=== PATIENT | female | born 1930 | race African-American/Black ===

== ENCOUNTER 2017-07-03 23:53 | Emergency (ER) | payer OTHER ==
[2017-07-04 00:44] LABS: Absolute Lymphocytes (CBC) 0.2 K/uL (0.7-4.9); Absolute Monocytes 0.2 K/uL (0.1-1.3); Absolute Neutrophil 8.3 K/uL (1.8-8.0); Basophils % 0.2 % (0-1.3); Eosinophils % 0.1 % (0-4.4); Hematocrit 38.5 % (36.0-45.0); Lymphocytes % 2.7 % (15.3-44.8); MCH 29.3 pg (27.0-35.0); MCV 85.5 fL (80-100); MPV 8.8 fL (7.6-11.3); Monocytes % 2.6 % (3.3-12.3)
[2017-07-04] MEDS ORDERED: ONDANSETRON 4 MG/2 ML VIAL ONE (00:53)
[2017-07-04 00:55] LABS: Potassium 3.8 mEq/L (3.6-5.0)
[2017-07-04 01:01] LABS: Albumin 3.9 g/dL (3.2-5.5); Bilirubin Direct 0.1 mg/dL (0-0.2); Bilirubin Total 0.5 mg/dL (0.3-1.2); Protein, Total 7.1 g/dL (6.0-8.3)
[2017-07-04 01:23] LABS: Blood Morphology Comment NOT SEEN (NOT SEEN); Platelet Estimate ADEQ
[2017-07-04 03:15] LABS: Urine Blood NEGATIVE (NEG); Urine Glucose NEGATIVE (NEG); Urine Specific Gravity 1.025 (1.005-1.030); Urine pH 5.5 (5.0-7.0)
[2017-07-04 03:16] LABS: Urine Protein TRACE (NEG)
[2017-07-04 03:17] LABS: Urine Bacteria <20 /HPF (<20); Urine Culture Reflex Order REFLEXED; Urine Mucus LIGHT /HPF (NONE SEEN); Urine RBC NONE SEEN /HPF (NONE SEEN)
--- NOTE | 2017-07-04 03:21 | EDPHYS ---
Physician Documentation [facility] Name: Maite Au Age: 87 yrs Sex: Female : 1930 Arrival Date: 07/03/2017 Time: 23:56 Bed 18 Private MD: ED Physician James Price HPI: 07/04 03:32 This 87 yrs old Black Female presents to ER via EMS with complaints of Abdominal Pain, gs Nausea/Vomiting. 03:32 The patient presents to the emergency department with vomiting, 2 times since the onset gs of symptoms. Onset: The symptoms/episode began/occurred acutely, yesterday. Possible causes: unknown. The symptoms are aggravated by nothing. The symptoms are alleviated by nothing. Associated signs and symptoms: Pertinent positives: abdominal pain, UPPER. Severity of symptoms: At their worst the symptoms were moderate in the emergency department the symptoms have improved markedly. Historical: - Allergies: 00:30 No Known Allergies; bs1 - Home Meds: 00:30 htn med [Active]; bs1 - PMHx: 00:30 htn; bs1 - PSHx: 00:30 pascual in right leg; bs1 - Immunization history:: Adult Immunizations up to date. - Social history:: Smoking status: Patient/guardian denies using tobacco. ROS: 03:32 All other systems are negative. gs Exam: 03:32 Head/Face: Normocephalic, atraumatic. Eyes: Pupils equal round and reactive to light, gs extra-ocular motions intact. Lids and lashes normal. Conjunctiva and sclera are non-icteric and not injected. Cornea within normal limits. Periorbital areas with no swelling, redness, or edema. ENT: Nares patent. No nasal discharge, no septal abnormalities noted. Tympanic membranes are normal and external auditory canals are clear. Oropharynx with no redness, swelling, or masses, exudates, or evidence of obstruction, uvula midline. Mucous membranes moist. Neck: Trachea midline, no thyromegaly or masses palpated, and no cervical lymphadenopathy. Supple, full range of motion without nuchal rigidity, or vertebral point tenderness. No Meningismus. Chest/axilla: Normal chest wall appearance and motion. Nontender with no deformity. No lesions are appreciated. Cardiovascular: Regular rate and rhythm with a normal S1 and S2. No gallops, murmurs, or rubs. Normal PMI, no JVD. No pulse deficits. Respiratory: Lungs have equal breath sounds bilaterally, clear to auscultation and percussion. No rales, rhonchi or wheezes noted. No increased work of breathing, no retractions or nasal flaring. Abdomen/GI: Soft, non-tender, with normal bowel sounds. No distension or tympany. No guarding or rebound. No evidence of tenderness throughout. Back: No spinal tenderness. No costovertebral tenderness. Full range of motion. Skin: Warm, dry with normal turgor. Normal color with no rashes, no lesions, and no evidence of cellulitis. MS/ Extremity: Pulses equal, no cyanosis. Neurovascular intact. Full, normal range of motion. Neuro: Awake and alert, GCS 15, oriented to person, place, time, and situation. Cranial nerves II-XII grossly intact. Motor strength 5/5 in all extremities. Sensory grossly intact. Cerebellar exam normal. Normal gait. 03:32 Constitutional: The patient appears in no acute distress, alert, awake. 03:32 ECG was reviewed by the Attending Physician. Vital Signs: 07/03 23:49 BP 151 / 63; Pulse 84; Resp 16 S; Temp 97.5(O); Pulse Ox 100% on R/A; Weight 72.12 kg; bs1 Height 5 ft. 2 in. (157.48 cm); Pain 4/10; 07/04 00:45 BP 103 / 31; Pulse 68; Resp 15; Pulse Ox 98% on R/A; Pain 0/10; bs1 01:28 BP 117 / 58; Pulse 64; Pulse Ox 100% on R/A; bs1 01:30 BP 119 / 64; Pulse 66; Resp 15 S; Pulse Ox 100% on R/A; Pain 0/10; bs1 02:30 BP 114 / 42; Pulse 73; Resp 15; Pulse Ox 97% ; Pain 0/10; bs1 03:30 BP 109 / 50; Pulse 68; Resp 15; Temp 97.7(O); Pulse Ox 99% on R/A; Pain 0/10; bs1 07/03 23:49 Body Mass Index 29.08 (72.12 kg, 157.48 cm) bs1 MDM: 00:29 Patient medically screened. 03:32 Differential diagnosis: Nonspecific abd pain, gastritis, pancreatitis, gastroenteritis. Data reviewed: vital signs, nurses notes. Response to treatment: the patient's symptoms have resolved after treatment, the patient's pain is gone, NO EMESIS, and as a result, I will discharge patient. 07/04 00:32 Order name: Basic Metabolic Panel; Complete Time: 01:33 07/04 00:32 Order name: CBC with Diff; Complete Time: 01:33 07/04 00:32 Order name: Hepatic Function; Complete Time: :33 07/04 00:32 Order name: Lipase; Complete Time: :33 07/04 00:32 Order name: Urine Microscopic Only; Complete Time: 03:20 07/04 00:32 Order name: Troponin (emerg Dept Use Only); Complete Time: :33 07/04 00:32 Order name: IV Saline Lock; Complete Time: 00:56 07/04 00:32 Order name: Labs collected and sent; Complete Time: 00:56 07/04 00:32 Order name: Urine Dipstick-Ancillary (obtain specimen); Complete Time: 03:13 07/04 01:23 Order name: Manual Differential; Complete Time: 01:33 [facility] 07/04 01:34 Order name: CT Stone Protocol 07/04 02:46 Order name: Urine Dipstick--Ancillary (enter results); Complete Time: 03:16 rg2 07/04 03:18 Order name: Urine Culture [facility] 07/04 00:32 Order name: EKG - Nurse/Tech; Complete Time: 01:35 gs EC:32 Rate is 69 beats/min. Rhythm is regular. OK interval is normal. QRS interval is normal. gs T waves are Normal. No ST changes noted. Clinical impression: Normal ECG. Interpreted by me. Administered Medications: 00:56 Drug: Zofran 4 mg Route: IVP; Site: left antecubital; bs1 01:35 Follow up: Response: No adverse reaction bs1 Disposition: 07/04/17 03:20 Discharged to Home. Impression: Vomiting, Upper abdominal pain, unspecified. - Condition is Stable. - Discharge Instructions: Abdominal Pain, Adult, Nausea and Vomiting. - Prescriptions for Zofran 4 mg Oral Tablet - take 1 tablet by ORAL route every 12 hours As needed; 6 tablet. - Medication Reconciliation Form, Thank You Letter, Antibiotic Education, Prescription Opioid Use form. - Follow up: Private Physician; When: 1 - 2 days; Reason: Re-evaluation by your physician. Signatures: Dispatcher [employer] Juany Monterroso, RN RN bb James Price MD MD gs Salazar, Brittany RN RN bs1
--- NOTE | 2017-07-04 03:21 | ER ---
Nurse's Notes [facility] Name: Maite Au Age: 87 yrs Sex: Female : 1930 Arrival Date: 07/03/2017 Time: 23:56 Bed 18 Private MD: Diagnosis: Vomiting;Upper abdominal pain, unspecified Presentation: 07/03 23:49 Presenting complaint: EMS states: "Patient reports N/V, and bilateral upper abdominal bs1 pain, started around 1400, felt abdominal pain around 2000, no vomiting noted.". Transition of care: patient was not received from another setting of care. Onset of symptoms was July 03, 2017 at 14:00. Initial Sepsis Screen: Does the patient meet any 2 criteria? No. Patient's initial sepsis screen is negative. Does the patient have a suspected source of infection? No. Patient's initial sepsis screen is negative. Care prior to arrival: None. 23:49 Method Of Arrival: EMS: [facility] bs1 23:49 Acuity: LUIS E 3 bs1 Historical: - Allergies: 07/04 00:30 No Known Allergies; bs1 - Home Meds: 00:30 htn med [Active]; bs1 - PMHx: 00:30 htn; bs1 - PSHx: 00:30 pascual in right leg; bs1 - Immunization history:: Adult Immunizations up to date. - Social history:: Smoking status: Patient/guardian denies using tobacco. Screenin:00 Abuse screen: Denies threats or abuse. Denies injuries from another. bs1 00:00 Nutritional screening: No deficits noted. Tuberculosis screening: No symptoms or risk bs1 factors identified. Fall Risk None identified. Assessment: 07/03 23:50 General: Appears in no apparent distress. uncomfortable, Behavior is calm, cooperative, bs1 appropriate for age. Pain: Complains of pain in bilateral upper abdomen Pain does not radiate. Pain currently is 5 out of 10 on a pain scale. Quality of pain is described as aching. Neuro: Level of Consciousness is awake, alert, obeys commands, Oriented to person, place, time, Appropriate for age Special Certificate Dictator are equal bilaterally. Cardiovascular: Denies chest pain, lightheadedness, palpitations, shortness of breath, Heart tones S1 S2 present Capillary refill < 3 seconds Patient's skin is warm and dry. Respiratory: Airway is patent Trachea midline Respiratory effort is even, unlabored, Respiratory pattern is regular, symmetrical, Breath sounds are clear bilaterally. GI: Abdomen is round Bowel sounds present X 4 quads. Abdomen is tender to palpation in right upper quadrant and left upper quadrant Reports epigastric pain, nausea, vomiting, Patient currently denies bloody stool. : No deficits noted. No signs and/or symptoms were reported regarding the genitourinary system. EENT: No deficits noted. No signs and/or symptoms were reported regarding the EENT system. Derm: Skin is intact, Skin is pink, warm \\T\\ dry. Musculoskeletal: Circulation, motion, and sensation intact. Capillary refill < 3 seconds, Range of motion: intact in all extremities. 07/04 00:50 Reassessment: Patient appears in no apparent distress at this time. No changes from bs1 previously documented assessment. Patient and/or family updated on plan of care and expected duration. Pain level reassessed. Patient is alert, oriented x 3, equal unlabored respirations, skin warm/dry/pink. 01:52 Reassessment: Patient taken to CT. bs1 02:52 Reassessment: Patient appears in no apparent distress at this time. Patient and/or bs1 family updated on plan of care and expected duration. Pain level reassessed. Patient is alert, oriented x 3, equal unlabored respirations, skin warm/dry/pink. 04:06 Reassessment: Patient is alert, oriented x 3, equal unlabored respirations, skin bb warm/dry/pink. pt A\\T\\O x 4, resp unlabored, ambulated with steady gait to exit accompanied by this RN pt assisted home via taxi service. Vital Signs: 07/03 23:49 BP 151 / 63; Pulse 84; Resp 16 S; Temp 97.5(O); Pulse Ox 100% on R/A; Weight 72.12 kg; bs1 Height 5 ft. 2 in. (157.48 cm); Pain 4/10; 07/04 00:45 BP 103 / 31; Pulse 68; Resp 15; Pulse Ox 98% on R/A; Pain 0/10; bs1 01:28 BP 117 / 58; Pulse 64; Pulse Ox 100% on R/A; bs1 01:30 BP 119 / 64; Pulse 66; Resp 15 S; Pulse Ox 100% on R/A; Pain 0/10; bs1 02:30 BP 114 / 42; Pulse 73; Resp 15; Pulse Ox 97% ; Pain 0/10; bs1 03:30 BP 109 / 50; Pulse 68; Resp 15; Temp 97.7(O); Pulse Ox 99% on R/A; Pain 0/10; bs1 07/03 23:49 Body Mass Index 29.08 (72.12 kg, 157.48 cm) bs1 ED Course: 07/03 23:56 Patient arrived in ED. bs1 07/04 00:00 Patient has correct armband on for positive identification. Placed in gown. Bed in low bs1 position. Call light in reach. Side rails up X 1. Pulse ox on. NIBP on. Warm blanket given. 00:00 Arm band placed on right wrist. bs1 00:06 James Price MD is Attending Physician. 00:12 Inserted saline lock: 22 gauge in left antecubital area, using aseptic technique. bs1 00:27 Elizabeth Buck, RN is Primary Nurse. bs1 00:29 Triage completed. bs1 02:12 CT Stone Protocol In Process Unspecified. EDMS 03:15 No provider procedures requiring assistance completed. bs1 04:05 IV discontinued, intact, bleeding controlled, No redness/swelling at site. Pressure bb dressing applied, by Elizabeth MARTIN. Administered Medications: 00:56 Drug: Zofran 4 mg Route: IVP; Site: left antecubital; bs1 01:35 Follow up: Response: No adverse reaction bs1 Outcome: 03:20 Discharge ordered by . 04:05 Discharged to home via taxi service bb 04:05 Condition: stable 04:06 Discharge instructions given to patient, by Elizabeth MARTIN Instructed on discharge bb instructions, follow up and referral plans. medication usage, Demonstrated understanding of instructions, follow-up care, medications, Prescriptions given X 1. 04:09 Patient left the ED. bb Signatures: Dispatcher [employer] EDMS Juany Kimball RN RN James Mandujano MD MD gs Salazar, Brittany, RN RN bs1 Corrections: (The following items were deleted from the chart) 03:15 03:14 Arm band placed on right wrist. bs1 bs1
--- NOTE | 2017-07-04 09:14 | EKG ---
Test Date: 2017-07-04 Test Time: 01:28:08 Chair Car Driver: BRET MEASUREMENT RESULTS: Intervals: Rate: 69 [place]: 150 QRSD: 74 QT: 402 QTc: 430 Gilman: P: 51 [place]: 150 QRS: 21 T: 54 INTERPRETIVE STATEMENTS: Normal sinus rhythm Normal ECG No previous ECG available for comparison Electronically Signed On 07-04-17 09:13:36 CDT by Sean Lucio
--- NOTE | 2017-07-04 09:29 | RAD REPORT ---
EXAM DESCRIPTION: CT - Stone Protocol - 07/04/2017 8:21 am CLINICAL HISTORY: Abdominal pain. Upper abdominal pain with nausea and vomiting COMPARISON: 2011 TECHNIQUE: Computed axial tomography of the abdomen pelvis was obtained without oral or IV contrast. Lack of IV and oral contrast limits evaluation of solid organs, bowel, and vessels. Coronal reformat sindy images were obtained and reviewed. A preliminary report was generated by [employer] and reviewed prior to this dictation All CT scans are performed using dose optimization technique as appropriate and may include automated exposure control or mA/KV adjustment according to patient size. FINDINGS: A renal calculus is not seen. An ureteral calculus is not noted. A bladder calculus is not present. A couple of hepatic cysts are present. The largest measures 2 centimeters. Spleen, pancreas and right adrenal appear grossly normal. 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 The appendix appears normal. 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 A small umbilical hernia is present IMPRESSION: Negative for a genitourinary calculus
== END 2017-07-04 04:09 | disposition home or self-care (01) ==
LOC: ER 23:53 → EDBD 23:53 → ER 07-04 04:09
DX: R10.9 Unspecified abdominal pain (principal)
CPT/HCPCS: 36415; 74176; 76377; 80048; 80076; 83690; 84484; 85025; 87086; 87088; 93005; 96374; 99284; J2405; 81003; 81015

== ENCOUNTER 2019-09-02 21:32 | Emergency (ER) | payer OTHER ==
[2019-09-02 22:24] LABS: ALT/SGPT 15 U/L (12-78); AST/SGOT 22 U/L (15-37); Albumin 3.7 g/dL (3.4-5.0); Alkaline Phosphatase 69 U/L (45-117); BUN Blood Urea Nitrogen 20 mg/dL (7-18); Bicarbonate 26 mmol/L (21-32); Bilirubin Direct < 0.1 mg/dL (0-0.2); Bilirubin Total 0.3 mg/dL (0.2-1.0); Glucose Level 108 mg/dL (74-106); Lipase 131 U/L (73-393); Protein, Total 7.1 g/dL (6.4-8.2); Sodium Level 143 mmol/L (136-145); Troponin (Emerg Dept Use Only) < 0.02 ng/mL (0.0-0.045)
[2019-09-02 23:01] LABS: Absolute Lymphocytes (CBC) 0.4 K/uL (0.7-4.9); Hematocrit 39.7 % (36.0-45.0); MPV 8.1 fL (7.6-11.3); RBC Red Blood Cell Count 4.46 M/uL (3.86-4.86)
--- NOTE | 2019-09-03 00:52 | ER ---
Nurse's Notes [facility] Name: Maite Au Age: 89 yrs Sex: Female : 1930 Arrival Date: 09/02/2019 Time: 21:35 Bed 6 Private MD: Diagnosis: Influenza due to identified novel influenza A virus Presentation: 09/01 21:38 Chief complaint: EMS states: she has generalized nausea 20 min [employer] today but has been mg2 having history of nausea before and she is on zofran at home. Coronavirus screen: Proceed with normal triage. Patient denies a cough. Patient denies shortness of breath or difficulty breathing. Patient denies measured and/or subjective temperature greater than 100.4F prior to today's visit. Patient denies travel on a cruise ship or to a country the [facility] currently lists as an affected area. Patient denies contact with known and/or suspected case of COVID-19. Ebola Screen: No symptoms or risks identified at this time. Initial Sepsis Screen: Does the patient meet any 2 criteria? No. Patient's initial sepsis screen is negative. Does the patient have a suspected source of infection? No. Patient's initial sepsis screen is negative. Risk Assessment: Do you want to hurt yourself or someone else? Patient reports no desire to harm self or others. Onset of symptoms was September 02, 2019. 21:38 Method Of Arrival: [place] [facility] [place]:38 Acuity: LUIS E 3 mg2 Historical: - Allergies: 21:46 No Known Allergies; mg2 - Home Meds: 21:46 Zofran Oral [Active]; Lisinopril Oral [Active]; mg2 - PSHx: 21:46 leg surgery; mg2 - Immunization history:: Flu vaccine status is unknown. - Social history:: Patient/guardian denies using alcohol, street drugs, IV drugs, Smoking status: Patient denies any tobacco usage or history of. - Family history:: not pertinent. - Hospitalizations: : No recent hospitalization is reported. Screenin:43 Abuse screen: Denies threats or abuse. Nutritional screening: No deficits noted. jd3 Tuberculosis screening: No symptoms or risk factors identified. Fall Risk Ambulatory Aid- None/Bed Rest/Nurse Assist (0 pts). Gait- Normal/Bed Rest/Wheelchair (0 pts) Mental Status- Oriented to own ability (0 pts). Total Law Fall Scale indicates No Risk (0-24 pts). Assessment: 21:42 General: Appears in no apparent distress. comfortable, Behavior is calm, cooperative, jd3 appropriate for age. Pain: Denies pain. Neuro: Level of Consciousness is awake, alert, obeys commands, Oriented to person, place, time, situation. Cardiovascular: Denies chest pain, Capillary refill < 3 seconds Patient's skin is warm and dry. Respiratory: Airway is patent Respiratory effort is even, unlabored, Respiratory pattern is regular, symmetrical, Denies cough, shortness of breath. GI: Abdomen is round non-distended, Abd is soft and non tender X 4 quads. Reports nausea prior to arrival, pt reporting feeling better. Patient currently denies abdominal pain. : No signs and/or symptoms were reported regarding the genitourinary system. EENT: No signs and/or symptoms were reported regarding the EENT system. Derm: Skin is intact, Skin is dry, Skin is normal, Skin temperature is warm. Musculoskeletal: Circulation, motion, and sensation intact. Range of motion: intact in all extremities. 22:27 Reassessment: CT notified of pt finishing PO contrast. jd3 22:49 Reassessment: Patient appears in no apparent distress at this time. Patient and/or jd3 family updated on plan of care and expected duration. Pain level reassessed. Patient is alert, oriented x 3, equal unlabored respirations, skin warm/dry/pink. Patient denies pain at this time. 09/02 00:19 Reassessment: Patient appears in no apparent distress at this time. Patient and/or jd3 family updated on plan of care and expected duration. Pain level reassessed. Patient is alert, oriented x 3, equal unlabored respirations, skin warm/dry/pink. Patient denies pain at this time. Patient states feeling better. 01:06 Reassessment: Patient and/or family updated on plan of care and expected duration. Pain ea level reassessed. Patient is alert, oriented x 3, equal unlabored respirations, skin warm/dry/pink. Discharge instruction given to patient, verbalized the understanding of instruction. Pt awaiting for ride home. 01:12 Reassessment: Patient appears in no apparent distress at this time. Patient and/or jd3 family updated on plan of care and expected duration. Pain level reassessed. Patient is alert, oriented x 3, equal unlabored respirations, skin warm/dry/pink. 01:30 Reassessment: Patient and/or family updated on plan of care and expected duration. Pain ea level reassessed. Patient is alert, oriented x 3, equal unlabored respirations, skin warm/dry/pink. Pt left ED via wheelchair per ED staff, pt tolerating well. Pt assisted to private vehicle with family friend. Vital Signs: 09/01 21:38 BP 145 / 65; Pulse 80; Resp 18; Temp 99.4; Pulse Ox 100% on R/A; Height 5 ft. 3 in. mg2 (160.02 cm); 09/02 00:09 BP 134 / 62; Pulse 69; Resp 18; Pulse Ox 99% on R/A; ea 01:00 BP 137 / 60; Pulse 60; Resp 18; Temp 98.5; Pulse Ox 100% ; ea ED Course: 09/01 21:35 Patient arrived in ED. rn 21:35 Elian Ames MD is Attending Physician. rn 21:41 Triage completed. mg2 21:41 Arm band placed on. mg2 21:42 Ricardo Zee, MARIO is Primary Nurse. jd3 21:44 Patient has correct armband on for positive identification. Bed in low position. Call jd3 light in reach. Side rails up X 1. nurse monitoring on. Pulse ox on. NIBP on. 21:45 Missed attempt(s): 22 gauge in left antecubital area. Bleeding controlled, band aid rr5 applied, catheter tip intact. 21:50 Initial lab(s) drawn, by me, sent to lab. rr5 22:15 Missed attempt(s): 20 gauge in right antecubital area. Bleeding controlled, band aid jd3 applied, catheter tip intact. 22:45 Inserted saline lock: 22 gauge in left wrist, using aseptic technique. lp1 09/02 00:16 CT Abd/Pelvis - PO and IV Contrast In Process Unspecified. EDMS 01:06 No provider procedures requiring assistance completed. ea 01:06 IV discontinued, intact, bleeding controlled, No redness/swelling at site. Pressure ea dressing applied. Administered Medications: 01:01 Drug: Tamiflu 75 mg Route: PO; ea 01:08 Follow up: Response: Medication administered at discharge. ea Outcome: 00:52 Discharge ordered by . rn 01:06 Condition: stable ea 01:06 Discharge instructions given to patient, Instructed on discharge instructions, follow up and referral plans. medication usage, Demonstrated understanding of instructions, follow-up care, medications, Prescriptions given X 1. 01:31 Discharged to home via wheelchair, with friend. jd3 01:31 Patient left the ED. jd3 Signatures: Dispatcher [employer] EDMS Elian Ames MD MD rn Pena, Laura RN RN lp1 Raquel Coker RN Ricardo Gimenez ea, RN RN jd3 Kofi Ahn RN RN Keith Del Toro RN RN rr5 Corrections: (The following items were deleted from the chart) 09/01 21:49 21:42 GI: Abdomen is round non-distended, Abd is soft and non tender X 4 quads. Reports jd3 nausea, Patient currently denies abdominal pain, jd3
--- NOTE | 2019-09-03 00:53 | EDPHYS ---
Physician Documentation [facility] Name: Maite Au Age: 89 yrs Sex: Female : 1930 Arrival Date: 09/02/2019 Time: 21:35 Bed 6 Private MD: ED Physician Elian Ames HPI: 09/01 22:35 This 89 yrs old Black Female presents to ER via EMS with complaints of nausea. rn 22:35 The patient presents to the emergency department with nausea, that is mild. Onset: The rn symptoms/episode began/occurred today. Possible causes: unknown. The symptoms are aggravated by nothing. The symptoms are alleviated by prescription meds. Severity of symptoms: At their worst the symptoms were mild in the emergency department the symptoms have improved. The patient has experienced similar episodes in the past. Reports was at [employer] today, states preacher yelled at her telling her to "get out", not sure why, states went home and felt nauseated, took oral zofran because this has happened before, and now feels better. Denies fever/vomiting/diarrhea/chest pain/headache/focal neuro complaint. Does report mild mid abd pain. . Historical: - Allergies: 21:46 No Known Allergies; mg2 - Home Meds: 21:46 Zofran Oral [Active]; Lisinopril Oral [Active]; mg2 - PSHx: 21:46 leg surgery; mg2 - Immunization history:: Flu vaccine status is unknown. - Social history:: Patient/guardian denies using alcohol, street drugs, IV drugs, Smoking status: Patient denies any tobacco usage or history of. - Family history:: not pertinent. - Hospitalizations: : No recent hospitalization is reported. ROS: 22:35 Constitutional: Negative for fever, chills, and weight loss, Eyes: Negative for injury, rn pain, redness, and discharge, Neck: Negative for injury, pain, and swelling, Cardiovascular: Negative for chest pain, palpitations, and edema, Respiratory: Negative for shortness of breath, cough, wheezing, and pleuritic chest pain, Abdomen/GI: + abd pain and nausea Back: Negative for injury and pain, : Negative for injury, bleeding, discharge, and swelling, MS/Extremity: Negative for injury and deformity, Skin: Negative for injury, rash, and discoloration, Neuro: Negative for headache, weakness, numbness, tingling, and seizure. Exam: 22:35 Constitutional: This is a well developed, well nourished patient who is awake, alert, rn and in no acute distress. Head/Face: Normocephalic, atraumatic. ENT: MMM Cardiovascular: Regular rate and rhythm with a normal S1 and S2. No gallops, murmurs, or rubs. Normal PMI, no JVD. No pulse deficits. Respiratory: Lungs have equal breath sounds bilaterally, clear to auscultation and percussion. No rales, rhonchi or wheezes noted. No increased work of breathing, no retractions or nasal flaring. Abdomen/GI: soft, + mild mid abd tenderness, no rebound/masses Skin: Warm, dry MS/ Extremity: Pulses equal, no cyanosis. Neuro: Awake and alert, GCS 15, oriented to person, place, time, and situation. Cranial nerves II-XII grossly intact. Motor strength 5/5 in all extremities. Sensory grossly intact. Cerebellar exam normal. Vital Signs: 21:38 BP 145 / 65; Pulse 80; Resp 18; Temp 99.4; Pulse Ox 100% on R/A; Height 5 ft. 3 in. mg2 (160.02 cm); 09/02 00:09 BP 134 / 62; Pulse 69; Resp 18; Pulse Ox 99% on R/A; ea 01:00 BP 137 / 60; Pulse 60; Resp 18; Temp 98.5; Pulse Ox 100% ; ea MDM: 09/01 21:35 Patient medically screened. rn 09/02 00:50 Differential diagnosis: Nonspecific abd pain, cholecystitis, pancreatitis, rn appendicitis, diverticulitis, viral gastroenteritis, gastroenteritis, influenza. Data reviewed: vital signs, nurses notes, lab test result(s), EKG, radiologic studies, CT scan, and as a result, I will discharge patient. Counseling: I had a detailed discussion with the patient and/or guardian regarding: the historical points, exam findings, and any diagnostic results supporting the discharge/admit diagnosis, lab results, radiology results, the need for outpatient follow up, to return to the emergency department if symptoms worsen or persist or if there are any questions or concerns that arise at home. Special discussion: Based on the patient's Hx, exam, and Dx evaluation, there is no indication for emergent surgery or inpatient Tx. It is understood by the patient/guardian that if the Sx's persist or worsen they need to return immediately for re-evaluation. I discussed with the patient/guardian in detail that at this point there is no indication for admission to the hospital. It is understood, however, that if the symptoms persist or worsen the patient needs to return immediately for re-evaluation. ED course: + influenza, normal vitals, will dc home given neg ct abdomen, is sleeping comfortably, and no vomiting. . 09/01 21:38 Order name: Basic Metabolic Panel; Complete Time: 22:34 09/01 21:38 Order name: CBC with Diff; Complete Time: 23:26 09/01 21:38 Order name: Hepatic Function; Complete Time: 22:34 09/01 21:38 Order name: Lipase; Complete Time: 22:34 09/01 21:38 Order name: Urine Microscopic Only 09/01 21:38 Order name: Troponin (emerg Dept Use Only); Complete Time: 22:34 09/01 21:38 Order name: IV Saline Lock; Complete Time: 22:36 09/01 21:38 Order name: Labs collected and sent; Complete Time: 21:53 09/01 21:38 Order name: CT Abd/Pelvis - PO and IV Contrast 09/01 21:38 Order name: EKG; Complete Time: 21:39 09/01 22:35 Order name: Flu; Complete Time: 00:44 09/01 23:31 Order name: Urine Dipstick--Ancillary (enter results) [facility] 09/02 01:18 Order name: Urine Culture [facility] 09/01 21:38 Order name: Urine Dipstick-Ancillary (obtain specimen); Complete Time: 23:31 09/01 21:38 Order name: EKG - Nurse/Tech; Complete Time: 22:25 rn Administered Medications: 01:01 Drug: Tamiflu 75 mg Route: PO; ea 01:08 Follow up: Response: Medication administered at discharge. ea Disposition: 09/03/19 00:52 Discharged to Home. Impression: Influenza due to identified novel influenza A virus. - Condition is Stable. - Discharge Instructions: Influenza, Adult. - Prescriptions for Zofran ODT 4 mg Oral tablet,disintegrating - place 1 tablet by TRANSLINGUAL route every 8 hours As needed; 20 tablet. Tamiflu 75 mg Oral Capsule - take 1 capsule by ORAL route every 12 hours for 5 days; 10 capsule. - Medication Reconciliation Form, Thank You Letter, Antibiotic Education, Prescription Opioid Use form. - Follow up: Private Physician; When: As needed; Reason: Recheck today's complaints, Re-evaluation by your physician. - Problem is new. - Symptoms have improved. Signatures: Dispatcher [employer] EDMS Elian Ames MD MD rn Antunez, Elena RN Ricardo Gimenez ea, RN RN jKofi Bynum RN RN mg2 Corrections: (The following items were deleted from the chart) 01:31 00:52 09/03/2019 00:52 Discharged to Home. Impression: Influenza due to identified jd3 novel influenza A virus. Condition is Stable. Forms are Medication Reconciliation Form, Thank You Letter, Antibiotic Education, Prescription Opioid Use. Follow up: Private Physician; When: As needed; Reason: Recheck today's complaints, Re-evaluation by your physician. Problem is new. Symptoms have improved. rn
[2019-09-03] MEDS ORDERED: OSELTAMIVIR 75 MG CAP ONE (01:05)
[2019-09-03 01:16] LABS: Urine Bacteria <20 /HPF (<20); Urine Culture Reflex Order REFLEXED; Urine RBC <5 /HPF (NONE SEEN)
[2019-09-03 01:18] LABS: Urine Blood NEGATIVE (NEG); Urine Glucose NEGATIVE (NEG); Urine Protein NEGATIVE (NEG); Urine Specific Gravity 1.025 (1.005-1.030)
[2019-09-03 01:51] VITALS: BP 137/60; TEMP 98.5; O2SAT 100
--- NOTE | 2019-09-03 07:25 | EKG ---
Test Date: 2019-09-02 Test Time: 21:58:38 Seconds Inspector: TT MEASUREMENT RESULTS: Intervals: Rate: 85 PA: 144 QRSD: 70 QT: 376 QTc: 447 [place]: P: 51 PA: 144 QRS: 16 T: 55 INTERPRETIVE STATEMENTS: Normal sinus rhythm with sinus arrhythmia Normal ECG Compared to ECG 07/04/2017 01:28:08 No significant changes Electronically Signed On 09-03-19 07:24:05 CDT by Sean Lucio
--- NOTE | 2019-09-03 10:44 | RAD REPORT ---
EXAM DESCRIPTION: CT Abdomen and Pelvis With Intravenous Contrast CLINICAL HISTORY: The patient is 89 years old and is Female; Abd pain;Nausea / vomiting TECHNIQUE: Axial computed tomography images of the abdomen and pelvis with intravenous contrast. S agittal and coronal reformatted images were created and reviewed. This CT exam was performed using one or more of the following dose reduction techniques: automated exposure control, adjustment of t he mA and/or kV according to patient size, and/or use of iterative reconstruction technique. COMPARISON: No relevant prior studies available. FINDINGS: ARTIFACTS: The exam is suboptimal secondary to motion artifact. LUNG BASES: Calcified granuloma within the right lung base is present. Minimal dependent densiti es in the lung bases is noted. ABDOMEN: LIVER: Multiple hepatic granuloma are present. Hepatic cysts are noted, the largest within the right hepatic lobe measuring 1.2 cm is noted. GALLBLADDER AND BILE DUCTS: No calcified stones. No ductal dilation. PANCREAS: No ductal dilation. No mass. SPLEEN: Unremarkable. ADRENALS: Hyperplasia of the adrenal glands is present. KIDNEYS AND URETERS: 0.8 cm left renal cyst is present. The kidneys enhance symmetrically. No ob structing renal or ureteral calculus is seen. STOMACH AND BOWEL: The stomach is minimally distended with oral contrast. Oral contrast is prese nt throughout the small bowel which is normal in caliber. Stool and contrast are noted throughout the colon. There is no mucosal thickening or evidence of bowel obstruction. PELVIS: APPENDIX: The appendix is normal in caliber without surrounding inflammation. BLADDER: Unremarkable. No mass. REPRODUCTIVE: Unremarkable as visualized. ABDOMEN and PELVIS: INTRAPERITONEAL SPACE: Unremarkable. No free air. No significant fluid collection. BONES/JOINTS: Multilevel degenerative changes of the spine is present. SOFT TISSUES: The soft tissues are normal. VASCULATURE: Minimal atherosclerosis of the vasculature is present. No abdominal aortic aneury sm. LYMPH NODES: Unremarkable. No enlarged lymph nodes. IMPRESSION: No acute findings on this contrasted CT of the abdomen and pelvis to explain the patient 's symptoms. Electronically signed by: Maxine Alcazar MD 09/03/2019 12:22 AM CDT Due to temporary technical issues with the PACS/Fluency reporting system, reports are being signed by the in house radiologist without review as a courtesy to ensure prompt reporting. The interpreting r adiologist is fully responsible for the content of the report.
== END 2019-09-03 01:31 | disposition home or self-care (01) ==
LOC: ER 21:32
DX: J10.1 Influenza due to other identified influenza virus with other respiratory manifestations (principal)
CPT/HCPCS: 93005; 87088; 85025; 87086; 80048; 36415; 80076; 84484; 83690; 87804 ×2; 74177; 99284; Q9967; 81003; 81015

== ENCOUNTER 2020-04-21 15:01 | Emergency (ER) | payer OTHER ==
--- NOTE | 2020-04-21 16:45 | RAD REPORT ---
EXAM DESCRIPTION: RAD - Pelvis - 04/21/2020 4:38 pm CLINICAL HISTORY: left leg pain COMPARISON: No comparisons FINDINGS: Mild arthritic changes involve both hips. No fracture, dislocation or AVN.
--- NOTE | 2020-04-21 16:46 | RAD REPORT ---
EXAM DESCRIPTION: RAD - Femur Left - 04/21/2020 4:38 pm CLINICAL HISTORY: PAIN COMPARISON: No comparisons FINDINGS: No fracture or dislocation seen.
[2020-04-21] MEDS ORDERED: TRAMADOL HCL 50 MG TAB ONE (17:06)
--- NOTE | 2020-04-21 17:47 | ER ---
Nurse's Notes [facility] Name: Maite Au Age: 89 yrs Sex: Female : 1930 Arrival Date: 04/21/2020 Time: 15:16 Bed 19 Private MD: Diagnosis: Pain in left hip Presentation: 04/21 15:16 Coronavirus screen: Client denies travel out of the [place] in the last 14 days. At this ph time, the client does not indicate any symptoms associated with coronavirus-19. Ebola Screen: No symptoms or risks identified at this time. Initial Sepsis Screen: Does the patient meet any 2 criteria? No. Patient's initial sepsis screen is negative. Does the patient have a suspected source of infection? No. Patient's initial sepsis screen is negative. Risk Assessment: Do you want to hurt yourself or someone else? Patient reports no desire to harm self or others. Onset of symptoms was April 21, 2020. 15:16 Method Of Arrival: EMS: [facility] 15:17 Chief complaint: EMS states: was getting off of the bus, missed the last step and sv landed on her left hip area. c/o pain to the left hip. Vitals stable. Care prior to arrival: None. Mechanism of Injury: Fall down 1 steps. Trauma event details: Injury occurred in the [facility], Injury occurred: on a street or highway. Injury occurred: April 21, 2020. 15:17 Acuity: LUIS E 4 sv 15:17 Method Of Arrival: EMS: [facility] 15:19 Mechanism of Injury: Fall down steps. Transition of care: patient was not received from another setting of care. Triage Assessment: 15:29 General: Appears in no apparent distress. comfortable, Behavior is calm, cooperative, ph appropriate for age. Pain: Complains of pain in left hamstring. Neuro: Level of Consciousness is awake, alert, obeys commands, Oriented to person, place, time, situation. Cardiovascular: Capillary refill < 3 seconds in bilateral fingers Patient's skin is warm and dry. Respiratory: Airway is patent Respiratory effort is even, unlabored. Derm: Skin is intact, is healthy with good turgor, Skin is pink, warm \T\ dry. Musculoskeletal: Circulation, motion, and sensation intact. Range of motion: intact in all extremities. Trauma Activation: Not Applicable Physician: ED Physician; Name: ; Notified At: ; Arrived At: Physician: General Surgeon; Name: ; Notified At: ; Arrived At: Physician: Radiology; Name: ; Notified At: ; Arrived At: Physician: Respiratory; Name: ; Notified At: ; Arrived At: Physician: Lab; Name: ; Notified At: ; Arrived At: Historical: - Allergies: 15:20 No Known Allergies; sv - PMHx: 15:20 HTN; sv - PSHx: 15:20 R leg surgery; sv - Immunization history:: Adult Immunizations unknown. - Immunization history: Last tetanus immunization: unknown. - Social history:: Smoking status: Patient denies any tobacco usage or history of. Screenin:18 Abuse screen: Denies threats or abuse. Denies injuries from another. Nutritional ph screening: No deficits noted. Tuberculosis screening: No symptoms or risk factors identified. Fall Risk None identified. Primary Survey: 15:28 NO uncontrolled hemorrhage observed. A: The patient is alert. Airway: patent, No ph supplemental oxygen in use on arrival. Oral cavity: clear, Trachea midline. Breathing/Chest: Respiratory pattern: regular, Respiratory effort: spontaneous, unlabored. Circulation: Skin color: pink, Skin temperature: warm, dry. Disability Alert. Exposure/Environment: There is no evidence of uncontrolled external bleeding. No obvious injuries are noted at this time. A warming method has been applied: A warm blanket has been provided to the patient. Assessment: 15:30 General: Appears in no apparent distress. comfortable, Behavior is calm, cooperative, ph appropriate for age. Pain: Complains of pain in left hamstring. Neuro: Level of Consciousness is awake, alert, obeys commands, Oriented to person, place, time, situation. Cardiovascular: Capillary refill < 3 seconds in bilateral fingers Patient's skin is warm and dry. Respiratory: Airway is patent Respiratory effort is even, unlabored, Respiratory pattern is regular, symmetrical. GI: No signs and/or symptoms were reported involving the gastrointestinal system. Derm: Skin is intact, is healthy with good turgor, Skin is pink, warm \T\ dry. Musculoskeletal: Circulation, motion, and sensation intact. Range of motion: intact in all extremities. 17:03 Reassessment: Patient appears in no apparent distress at this time. Patient and/or ph family updated on plan of care and expected duration. Pain level reassessed. Patient is alert, oriented x 3, equal unlabored respirations, skin warm/dry/pink. 17:40 Reassessment: Patient appears in no apparent distress at this time. Patient and/or ph family updated on plan of care and expected duration. Pain level reassessed. Patient is alert, oriented x 3, equal unlabored respirations, skin warm/dry/pink. Pt ambulated to restroom w/ walker, no difficulty noted, reports soreness to back of L leg. 18:14 Reassessment: Patient appears in no apparent distress at this time. Patient and/or ph family updated on plan of care and expected duration. Pain level reassessed. Patient is alert, oriented x 3, equal unlabored respirations, skin warm/dry/pink. D/C pending ride home. Vital Signs: 15:16 BP 143 / 71; Pulse 85; Resp 18; Temp 98.0; Pulse Ox 97% on R/A; ph 17:06 BP 150 / 70; Pulse 56; Resp 18; Pulse Ox 98% on R/A; ph 18:15 BP 146 / 78; Pulse 58; Resp 18; Temp 97.9; Pulse Ox 99% on R/A; ph Dottie Coma Score: 15:29 Eye Response: spontaneous(4). Verbal Response: oriented(5). Motor Response: obeys ph commands(6). Total: 15. 17:06 Eye Response: spontaneous(4). Verbal Response: oriented(5). Motor Response: obeys ph commands(6). Total: 15. 18:15 Eye Response: spontaneous(4). Verbal Response: oriented(5). Motor Response: obeys ph commands(6). Total: 15. Trauma Score (Adult): 15:29 Eye Response: spontaneous(1); Verbal Response: oriented(1); Motor Response: obeys ph commands(2); Systolic BP: > 89 mm Hg(4); Respiratory Rate: 10 to 29 per min(4); Upham Score: 15; Trauma Score: 12 17:06 Eye Response: spontaneous(1); Verbal Response: oriented(1); Motor Response: obeys ph commands(2); Systolic BP: > 89 mm Hg(4); Respiratory Rate: 10 to 29 per min(4); Dottie Score: 15; Trauma Score: 12 18:15 Eye Response: spontaneous(1); Verbal Response: oriented(1); Motor Response: obeys ph commands(2); Systolic BP: > 89 mm Hg(4); Respiratory Rate: 10 to 29 per min(4); Dottie Score: 15; Trauma Score: 12 ED Course: 15:16 Patient arrived in ED. ph 15:18 Triage completed. ph 15:19 Patient has correct armband on for positive identification. Bed in low position. Call ph light in reach. Side rails up X 1. Pulse ox on. NIBP on. Door closed. Noise minimized. Warm blanket given. 15:28 Tamara Baldwin, RN is Primary Nurse. ph 15:30 Arm band placed on Patient placed in an exam room. ph 15:30 Patient maintains SpO2 saturation greater than 95% on room air. Thermoregulation: warm ph blanket given to patient. 15:32 Tucker Bullock PA is PHCP. cp 15:32 Paul Canchola MD is Attending Physician. cp 16:25 Missed attempt(s): 22 gauge in left antecubital area. kj1 16:38 XRAY Pelvis In Process Unspecified. EDMS 16:38 XRAY Femur LEFT In Process Unspecified. EDMS 18:14 No provider procedures requiring assistance completed. Patient did not have IV access ph during this emergency room visit. Administered Medications: 16:59 Drug: traMADol 25 mg Route: PO; ph 17:06 Follow up: Response: No adverse reaction ph 18:04 Drug: TORadol 30 mg Route: IM; Site: left vastus lateralis; ph 18:30 Follow up: Response: No adverse reaction; Pain is decreased ph Intake: 15:29 PO: 0ml; Total: 0ml. ph 18:15 PO: 0ml; Total: 0ml. ph Output: 15:29 Urine: 0ml; Total: 0ml. ph 18:15 Urine: 0ml; Total: 0ml. ph Outcome: 17:47 Discharge ordered by . cp 18:14 Discharged to home ambulatory, with friend. ph 18:14 Condition: good 18:14 Discharge instructions given to patient, Instructed on discharge instructions, follow up and referral plans. medication usage, Demonstrated understanding of instructions, follow-up care, medications, Prescriptions given X 2. 18:15 Patient's length of stay was not longer than 2 hours. ph 18:59 Patient left the ED. tw2 Signatures: Dispatcher [employer] EDJennifer Gonzalez RN RN Tamara Baldwin RN RN ph Tucker Bullock PA PA cp Wise, Tara, RN RN tw2 Effie Ramirez kj1 Corrections: (The following items were deleted from the chart) 15:20 15:16 Chief complaint: EMS states: Was attempting to get off of transit bus and fell on ph stairs, c/o pain to back of R thigh, no obvious deformity noted, denies other injury or LOC ph 15:20 15:16 Acuity: LUIS E 3 ph ph
--- NOTE | 2020-04-21 17:47 | EDPHYS ---
Physician Documentation [facility] Name: Maite Au Age: 89 yrs Sex: Female : 1930 Arrival Date: 04/21/2020 Time: 15:16 Bed 19 Private MD: ED Physician Paul Canchola HPI: 04/21 16:00 This 89 yrs old Black Female presents to ER via EMS with complaints of Fall Injury. cp 16:00 Patient reports she lost her balance and stumbled getting off bus. Denies fall to cp ground. Now having pain left hip and left upper leg. 16:00 Associated signs and symptoms: Pertinent negatives calf tenderness, numbness, weakness. cp Treatment prior to arrival includes: no previous treatment. Historical: - Allergies: 15:20 No Known Allergies; sv - PMHx: 15:20 HTN; sv - PSHx: 15:20 R leg surgery; sv - Immunization history:: Adult Immunizations unknown. - Immunization history: Last tetanus immunization: unknown. - Social history:: Smoking status: Patient denies any tobacco usage or history of. ROS: 16:05 MS/extremity: Positive for pain, of the left hip and left upper leg, Negative for cp decreased range of motion, deformity, paresthesias. 16:05 Constitutional: Negative for body aches, chills, fever. cp 16:05 Neck: Negative for pain with movement, pain at rest, stiffness. 16:05 Cardiovascular: Negative for chest pain, palpitations. 16:05 Respiratory: Negative for cough, shortness of breath, wheezing. 16:05 Abdomen/GI: Negative for abdominal pain, nausea, vomiting, and diarrhea. 16:05 Back: Negative for pain at rest, pain with movement. 16:05 : Negative for urinary symptoms. 16:05 Neuro: Negative for altered mental status, headache, loss of consciousness, numbness, syncope, weakness. 16:05 All other systems are negative. Exam: 16:10 Constitutional: The patient appears in no acute distress, alert, awake, cp non-diaphoretic, non-toxic, well developed, well nourished. 16:10 Head/Face: Normocephalic, atraumatic. cp 16:10 Chest/axilla: Inspection: normal. 16:10 Cardiovascular: Rate: normal, Rhythm: regular, Edema: is not appreciated. 16:10 Respiratory: the patient does not display signs of respiratory distress, Respirations: normal, no use of accessory muscles, no retractions, labored breathing, is not present, Breath sounds: are clear throughout. 16:10 Abdomen/GI: Inspection: abdomen appears normal, Palpation: abdomen is soft and non-tender, in all quadrants, rebound tenderness, is not appreciated, voluntary guarding, is not appreciated, involuntary guarding, is not appreciated. 16:10 Back: pain, is absent, ROM is normal. 16:10 Musculoskeletal/extremity: Extremities: grossly normal except: noted in the left hip and left upper leg: pain, tenderness, There is no evidence of decreased ROM, deformity, ROM: limited active range of motion due to pain, in the left hip, Perfusion: the extremity is normally perfused throughout, Sensation intact. 16:10 Skin: cellulitis, is not appreciated, no rash present. 16:10 Neuro: Orientation: to person, place \T\ time. Mentation: is normal, Motor: moves all fours, strength is normal. Vital Signs: 15:16 BP 143 / 71; Pulse 85; Resp 18; Temp 98.0; Pulse Ox 97% on R/A; ph 17:06 BP 150 / 70; Pulse 56; Resp 18; Pulse Ox 98% on R/A; ph 18:15 BP 146 / 78; Pulse 58; Resp 18; Temp 97.9; Pulse Ox 99% on R/A; ph Renault Coma Score: 15:29 Eye Response: spontaneous(4). Verbal Response: oriented(5). Motor Response: obeys ph commands(6). Total: 15. 17:06 Eye Response: spontaneous(4). Verbal Response: oriented(5). Motor Response: obeys ph commands(6). Total: 15. 18:15 Eye Response: spontaneous(4). Verbal Response: oriented(5). Motor Response: obeys ph commands(6). Total: 15. Trauma Score (Adult): 15:29 Eye Response: spontaneous(1); Verbal Response: oriented(1); Motor Response: obeys ph commands(2); Systolic BP: > 89 mm Hg(4); Respiratory Rate: 10 to 29 per min(4); Dottie Score: 15; Trauma Score: 12 17:06 Eye Response: spontaneous(1); Verbal Response: oriented(1); Motor Response: obeys ph commands(2); Systolic BP: > 89 mm Hg(4); Respiratory Rate: 10 to 29 per min(4); Renault Score: 15; Trauma Score: 12 18:15 Eye Response: spontaneous(1); Verbal Response: oriented(1); Motor Response: obeys ph commands(2); Systolic BP: > 89 mm Hg(4); Respiratory Rate: 10 to 29 per min(4); Dottie Score: 15; Trauma Score: 12 MDM: 15:47 Patient medically screened. cp 16:30 Differential diagnosis: dislocation, closed fracture, contusion, tendonitis. cp 17:45 Data reviewed: vital signs, nurses notes, radiologic studies, plain films. cp 17:45 Test interpretation: by ED physician or midlevel provider: plain radiologic studies. cp Counseling: I had a detailed discussion with the patient and/or guardian regarding: the historical points, exam findings, and any diagnostic results supporting the discharge/admit diagnosis, radiology results, the need for outpatient follow up, a family practitioner, to return to the emergency department if symptoms worsen or persist or if there are any questions or concerns that arise at home. Response to treatment: the patient's symptoms have mildly improved after treatment, and as a result, I will discharge patient. ED course: VSS. Pain improved with meds. Xrays reviewed and negative for fracture. Will discharge to home for continued monitoring. 04/21 15:57 Order name: XRAY Pelvis; Complete Time: 17:48 04/21 17:48 Interpretation: Report reviewed. 04/21 15:57 Order name: XRAY Femur LEFT; Complete Time: 17:48 04/21 17:49 Interpretation: Reviewed. 04/21 15:57 Order name: Labs collected and sent; Complete Time: 17:00 04/21 17:00 Order name: Misc. Order: ambulate patient; Complete Time: 17:40 cp Administered Medications: 16:59 Drug: traMADol 25 mg Route: PO; ph 17:06 Follow up: Response: No adverse reaction ph 18:04 Drug: TORadol 30 mg Route: IM; Site: left vastus lateralis; ph 18:30 Follow up: Response: No adverse reaction; Pain is decreased ph Disposition: 18:00 Chart complete. cp Disposition: 04/21/20 17:47 Discharged to Home. Impression: Pain in left hip. - Condition is Stable. - Discharge Instructions: Hip Pain. - Prescriptions for Mobic 7.5 mg Oral Tablet - take 1 tablet by ORAL route once daily take with food; 20 tablet. Tramadol 50 mg Oral Tablet - take 1 tablet by ORAL route every 8 hours as needed; 12 tablet. - Medication Reconciliation Form, Thank You Letter, Antibiotic Education, Prescription Opioid Use form. - Follow up: Private Physician; When: 2 - 3 days; Reason: Recheck today's complaints. - Problem is new. - Symptoms have improved. Addendum: 04/25/2020 06:13 Co-signature as Attending Physician, Paul Canchola MD I agree with the assessment and k dr plan of care. Signatures: Dispatcher [employer] Jennifer Alegre, RN RN Paul Canchola MD MD [facility] Tamara Baldwin RN RN ph Tucker Bullock PA PA cp Luh Lynn RN RN tw2 Corrections: (The following items were deleted from the chart) 04/21 17:40 15:57 IV Saline Lock ordered. cp ph 18:59 17:47 04/21/2020 17:47 Discharged to Home. Impression: Pain in left hip. Condition is tw2 Stable. Forms are Medication Reconciliation Form, Thank You Letter, Antibiotic Education, Prescription Opioid Use. Follow up: Private Physician; When: 2 - 3 days; Reason: Recheck today's complaints. Problem is new. Symptoms have improved. cp
[2020-04-21] MEDS ORDERED: KETOROLAC 30 MG/ML INJ ONE (18:01)
[2020-04-21 19:57] VITALS: BP 146/78; TEMP 97.9; O2SAT 99
== END 2020-04-21 18:59 | disposition home or self-care (01) ==
LOC: NPA 15:01 → ER 15:01
DX: M25.552 Pain in left hip (principal); I10 Essential (primary) hypertension
CPT/HCPCS: 72170; 96372; 99284

== ENCOUNTER 2021-01-01 20:08 | Emergency (ER) | payer OTHER ==
[2021-01-01 21:12] LABS: Protime INR 0.97
--- NOTE | 2021-01-01 21:17 | RAD REPORT ---
EXAM DESCRIPTION: Kali Single View01/01/2021 9:11 pm CLINICAL HISTORY: abd pain COMPARISON: none FINDINGS: The lungs appear clear of acute infiltrate. The heart is borderline enlarged IMPRESSION: No acute abnormalities displayed
--- NOTE | 2021-01-01 21:18 | RAD REPORT ---
EXAM DESCRIPTION: RAD - Knee Right 3 View - 01/01/2021 9:11 pm CLINICAL HISTORY: Right knee pain FINDINGS: Plate and screws affix old tibial fracture. No acute fracture or dislocation is seen. Small joint effusion is present.
[2021-01-01 21:24] LABS: Absolute Lymphocytes (CBC) 0.9 K/uL (0.7-4.9); Basophils % 0.7 % (0-1.3); Hematocrit 38.6 % (36.0-45.0); Lymphocytes % 10.4 % (15.3-44.8); MPV 8.2 fL (7.6-11.3); RBC Red Blood Cell Count 4.42 M/uL (3.86-4.86)
[2021-01-01 21:28] LABS: ALT/SGPT 18 U/L (12-78); AST/SGOT 22 U/L (15-37); Albumin 3.9 g/dL (3.4-5.0); Alkaline Phosphatase 72 U/L (45-117); BUN Blood Urea Nitrogen 23 mg/dL (7-18); Bicarbonate 29 mmol/L (21-32); Bilirubin Direct < 0.1 mg/dL (0-0.2); Bilirubin Total 0.2 mg/dL (0.2-1.0); Glucose Level 124 mg/dL (74-106); Lipase 225 U/L (73-393); Magnesium 2.4 mg/dL (1.8-2.4); NT PRO-BNP 205 pg/mL (<450); Potassium 4.3 mmol/L (3.5-5.1); Protein, Total 7.5 g/dL (6.4-8.2); Sodium Level 143 mmol/L (136-145); Troponin (Emerg Dept Use Only) < 0.02 ng/mL (0.0-0.045)
[2021-01-01 22:31] LABS: Blood Morphology Comment NOT SEEN (NOT SEEN); Platelet Estimate ADEQ; White Blood Cell Scan OK (OK)
--- NOTE | 2021-01-01 22:49 | EDPHYS ---
Physician Documentation [facility] Name: Maite Au Age: 89 yrs Sex: Female : 1930 Arrival Date: 01/01/2021 Time: 20:13 Bed 25 Private MD: ED Physician Shlomo Beckford HPI: 01/01 20:49 This 89 yrs old Black Female presents to ER via Ambulatory with complaints of Abdominal pm1 Pain, Nausea. 20:49 The patient presents with abdominal pain in the upper abdomen. Onset: The pm1 symptoms/episode began/occurred today. The symptoms do not radiate. Associated signs and symptoms: Pertinent positives: nausea, Pertinent negatives: chest pain, fever, shortness of breath. The symptoms are described as vague. Modifying factors: The symptoms are alleviated by Pepto-Bismol, the symptoms are aggravated by food, Chicken salad. Severity of pain: in the emergency department the pain has resolved After taking Pepto-Bismol. The patient has not recently seen a physician. Patient also complaining of right knee pain post bump my shopping cart 1 month ago. Patient would like x-ray of knee. Patient presenting to the ER with complaints of upper abdominal pain after consumption of chicken salad. Patient took Pepto-Bismol for her pain and her pain is completely resolved prior to arrival. Historical: - Allergies: 21:00 No Known Allergies; dc2 - Home Meds: 21:00 HTN med [Active]; lisinopril Oral [Active]; Zofran Oral [Active]; dc2 - PMHx: 21:00 HTN; dc2 - Immunization history:: Adult Immunizations up to date. - Social history:: Smoking status: Patient denies any tobacco usage or history of. Patient/guardian denies using alcohol, street drugs, IV drugs. ROS: 20:49 Constitutional: Negative for fever, chills, and weight loss, Cardiovascular: Negative pm1 for chest pain, palpitations, and edema, Respiratory: Negative for shortness of breath, cough, wheezing, and pleuritic chest pain. 20:49 Back: Negative for injury and pain, Skin: Negative for injury, rash, and discoloration. 20:49 Abdomen/GI: Positive for abdominal pain, nausea, Negative for vomiting, diarrhea. 20:49 MS/extremity: Positive for pain, of the right knee, Negative for decreased range of motion, deformity. 20:49 All other systems are negative. Exam: 20:49 Constitutional: This is a well developed, well nourished patient who is awake, alert, pm1 and in no acute distress. Head/Face: Normocephalic, atraumatic. 20:49 Back: No spinal tenderness. No costovertebral tenderness. Full range of motion. Skin: Warm, dry with normal turgor. Normal color with no rashes, no lesions, and no evidence of cellulitis. 20:49 Eyes: Exam is negative for Sclera: no acute changes, icterus, is not appreciated. 20:49 ENT: Exam is negative for acute changes, Mouth: no acute changes, Lips: normal, moist, Oral mucosa: normal, pink and intact, moist. 20:49 Cardiovascular: Exam negative for acute changes, Rate: normal, Rhythm: regular, Pulses: no pulse deficits are appreciated, Heart sounds: normal, normal S1and S2. 20:49 Respiratory: Exam negative for acute changes, respiratory distress, shortness of breath, Breath sounds: are clear throughout. 20:49 Abdomen/GI: Inspection: obese Palpation: abdomen is soft and non-tender, in all quadrants. 20:49 Musculoskeletal/extremity: Extremities: grossly normal except: noted in the right knee: tenderness. 20:49 Neuro: Exam negative for acute changes, Orientation: is normal, Mentation: is normal, Motor: no acute changes, moves all fours, Sensation: is normal, no obvious gross deficits. Vital Signs: 21:00 BP 151 / 73; Pulse 71; Resp 18; Temp 98.7; Pulse Ox 99% ; Weight 86.18 kg; Height 5 ft. dc2 4 in. (162.56 cm); Pain 0/10; 22:15 BP 152 / 67; Pulse 65; Resp 16; Pulse Ox 100% on R/A; lp1 21:00 Body Mass Index 32.61 (86.18 kg, 162.56 cm) dc2 MDM: 20:39 Patient medically screened. pm1 22:17 Data reviewed: vital signs. Data interpreted: Pulse oximetry: on room air is 99 %. pm1 Interpretation: normal. 22:47 Counseling: I had a detailed discussion with the patient and/or guardian regarding: the pm1 historical points, exam findings, and any diagnostic results supporting the discharge/admit diagnosis, lab results, radiology results, the need for outpatient follow up, to return to the emergency department if symptoms worsen or persist or if there are any questions or concerns that arise at home. 01/01 20:40 Order name: Basic Metabolic Panel; Complete Time: 21:30 pm1 01/01 20:40 Order name: CBC with Diff; Complete Time: 22:47 pm1 01/01 20:40 Order name: LFT's; Complete Time: 21:30 pm1 01/01 20:40 Order name: Magnesium; Complete Time: 21:30 pm1 01/01 20:40 Order name: NT PRO-BNP; Complete Time: 21:30 pm1 01/01 20:40 Order name: PT-INR; Complete Time: 21:30 pm1 01/01 20:40 Order name: Troponin (emerg Dept Use Only); Complete Time: 21:30 pm1 01/01 20:40 Order name: XRAY Chest (1 view); Complete Time: 21:30 pm1 01/01 20:40 Order name: EKG; Complete Time: 20:41 pm1 01/01 20:40 Order name: Cardiac monitoring; Complete Time: 21:08 pm1 01/01 20:40 Order name: Lipase; Complete Time: 21:30 pm1 01/01 20:41 Order name: Knee Right 3 View XRAY; Complete Time: 21:30 pm1 01/01 21:25 Order name: CBC Smear Scan; Complete Time: 22:47 EDMS 01/01 20:40 Order name: EKG - Nurse/Tech; Complete Time: 21:08 pm1 01/01 20:40 Order name: IV Saline Lock; Complete Time: 21:08 pm1 01/01 20:40 Order name: Labs collected and sent; Complete Time: 21:08 pm1 01/01 20:40 Order name: O2 Per Protocol; Complete Time: 21:08 pm1 01/01 20:40 Order name: O2 Sat Monitoring; Complete Time: 21:08 pm1 Administered Medications: 22:24 CANCELLED (Physician Discretion): NS 0.9% 250 ml IV at calculated rate once pm1 Disposition: 23:25 Co-signature as Attending Physician, Shlomo Beckford MD. pkl Disposition Summary: 01/01/21 22:48 Discharge Ordered Location: Home pm1 Problem: new pm1 Symptoms: have improved pm1 Condition: Stable pm1 Diagnosis - Abdominal pain, unspecified pm1 - Pain in right knee - small knee effusion pm1 Followup: pm1 - With: Emergency Department - When: As needed - Reason: Worsening of condition Followup: pm1 - With: Private Physician - When: 2 - 3 days - Reason: Recheck today's complaints, Continuance of care, Re-evaluation by your physician Discharge Instructions: - Discharge Summary Sheet pm1 - Abdominal Pain, Adult pm1 - Knee Effusion pm1 - Acute Knee Pain, Adult pm1 Forms: - Medication Reconciliation Form pm1 - Thank You Letter pm1 - Antibiotic Education pm1 - Prescription Opioid Use pm1 Signatures: Dispatcher [employer] EDMS Shlomo Beckford MD MD pkl Efrain Birch NP CLINICAL WRITER pm1 Gillian Jamison RN RN dc2 Corrections: (The following items were deleted from the chart) 22:24 22:16 NS 0.9% 250 ml IV at calculated rate once ordered. pm1 pm1
--- NOTE | 2021-01-01 22:49 | ER ---
Nurse's Notes [facility] Name: Maite Au Age: 89 yrs Sex: Female : 1930 Arrival Date: 01/01/2021 Time: 20:13 Bed 25 Private MD: Diagnosis: Abdominal pain, unspecified;Pain in right knee-small knee effusion Presentation: 01/01 21:00 Chief complaint: Patient states: " I went to a baby shower and ate some things, my dc2 stomach was upset and I went home and took some Pepto Bismol. 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 Denies pain , nausea or diarrhea at triage. 21:00 Initial Sepsis Screen: Does the patient meet any 2 criteria? No. Patient's initial dc2 sepsis screen is negative. Onset of symptoms was January 01, 2021. Care prior to arrival: took pepto bismol. 21:00 Method Of Arrival: Ambulatory dc2 21:00 Acuity: LUIS E 3 dc2 21:07 Coronavirus screen: At this time, the client does not indicate any symptoms associated lp1 with coronavirus-19. Ebola Screen: No symptoms or risks identified at this time. Risk Assessment: Do you want to hurt yourself or someone else? Patient reports no desire to harm self or others. 22:05 Initial Sepsis Screen: Does the patient have a suspected source of infection? No. dc2 Patient's initial sepsis screen is negative. Triage Assessment: 22:05 General: Appears in no apparent distress. comfortable, obese, well groomed, Behavior is dc2 calm, cooperative. Pain: Denies pain. Historical: - Allergies: 21:00 No Known Allergies; dc2 - Home Meds: 21:00 HTN med [Active]; lisinopril Oral [Active]; Zofran Oral [Active]; dc2 - PMHx: 21:00 HTN; dc2 - Immunization history:: Adult Immunizations up to date. - Social history:: Smoking status: Patient denies any tobacco usage or history of. Patient/guardian denies using alcohol, street drugs, IV drugs. Screenin:06 Abuse screen: Denies threats or abuse. Denies injuries from another. Nutritional lp1 screening: No deficits noted. Tuberculosis screening: No symptoms or risk factors identified. Fall Risk Total Law Fall Scale indicates High Risk Score (45 or more points). Fall prevention measures have been instituted. Side Rails Up X 2 Family Present and informed to notify staff if the need to leave the bedside As available patient and family educated on Fall Prevention Program and Strategies. Assessment: 21:29 Reassessment: Reports abdominal pain and nausea have been resolved. General: Appears in lp1 no apparent distress. Behavior is calm, cooperative, appropriate for age. Pain: Denies pain. Neuro: Level of Consciousness is awake, alert, obeys commands, Oriented to person, place, situation. Cardiovascular: Patient's skin is warm and dry. Respiratory: Respiratory effort is even, unlabored. GI: Abdomen is non-distended, Bowel sounds present X 4 quads. Abd is soft and non tender X 4 quads. Patient currently denies abdominal pain, nausea, vomiting. : No signs and/or symptoms were reported regarding the genitourinary system. EENT: No signs and/or symptoms were reported regarding the EENT system. Derm: Skin is intact, Skin is dry, Skin is normal. Musculoskeletal: No deficits noted. 22:07 Reassessment: AT the end of triage,pt co right knee pain. dc2 22:43 Reassessment: Patient appears in no apparent distress at this time. Patient is alert, lp1 oriented x 3, equal unlabored respirations, skin warm/dry/pink. Patient denies pain at this time. Vital Signs: 21:00 BP 151 / 73; Pulse 71; Resp 18; Temp 98.7; Pulse Ox 99% ; Weight 86.18 kg; Height 5 ft. dc2 4 in. (162.56 cm); Pain 0/10; 22:15 BP 152 / 67; Pulse 65; Resp 16; Pulse Ox 100% on R/A; lp1 21:00 Body Mass Index 32.61 (86.18 kg, 162.56 cm) dc2 ED Course: 20:13 Patient arrived in ED. bp1 20:21 Efrain Birch NP is PHCP. pm1 20:21 Shlomo Beckford MD is Attending Physician. pm1 21:00 Initial lab(s) drawn, by me, sent to lab. Missed attempt(s): 22 gauge in left lp1 antecubital area. 21:05 Meera Pantoja, RN is Primary Nurse. lp1 21:07 Patient has correct armband on for positive identification. Placed in gown. Bed in low lp1 position. surveillance monitor on. Pulse ox on. NIBP on. 21:08 EKG done, by ED staff, reviewed by Shlomo Beckford MD. 5 21:09 Call light in reach. Adult w/ patient. Warm blanket given. 5 21:11 XRAY Chest (1 view) In Process Unspecified. EDMS 21:11 Knee Right 3 View XRAY In Process Unspecified. EDMS 22:04 Triage completed. dc2 22:05 No provider procedures requiring assistance completed. dc2 22:06 Patient none. dc2 22:43 Patient did not have IV access during this emergency room visit. lp1 Administered Medications: 22:24 CANCELLED (Physician Discretion): NS 0.9% 250 ml IV at calculated rate once pm1 Outcome: 22:48 Discharge ordered by MD. pm1 23:04 Discharged to home ambulatory. lp1 23:04 Condition: good 23:04 Discharge instructions given to patient, Instructed on discharge instructions, follow up and referral plans. Demonstrated understanding of instructions, follow-up care. 23:04 Patient left the ED. lp1 Signatures: Dispatcher [employer] EDMS Meera Pantoja RN RN lp1 Efrain Birch, MACHINE CLOTH TRIMMER MACHINE CLOTH TRIMMER 1 Freya Guzmán [facility] Elizabeth Diaz Denise, RN RN dc2
[2021-01-01 23:13] VITALS: TEMP 98.7
[2021-01-01 23:15] VITALS: BP 152/67; O2SAT 100
--- NOTE | 2021-01-02 08:58 | EKG ---
Test Date: 2021-01-01 Test Time: 20:50:24 Branch Retail Executive: DIMAS MEASUREMENT RESULTS: Intervals: Rate: 69 AK: 152 QRSD: 64 QT: 398 QTc: 426 [place]: P: 57 AK: 152 QRS: 37 T: 65 INTERPRETIVE STATEMENTS: Normal sinus rhythm with sinus arrhythmia Normal ECG Compared to ECG 09/02/2019 21:58:38 No significant changes Electronically Signed On 01-02-21 08:57:18 CDT by Sean Lucio
== END 2021-01-01 23:04 | disposition home or self-care (01) ==
LOC: ER 20:08
DX: R10.10 Upper abdominal pain, unspecified (principal); M25.461 Effusion, right knee; I10 Essential (primary) hypertension
CPT/HCPCS: 36415; 71045; 80048; 80076; 83690; 83735; 83880; 84484; 85025; 85610; 93005; 99284